=== PATIENT | female | born 1965 | race Caucasian/White ===

== ENCOUNTER 2021-01-11 11:14 | Emergency (ER) | payer OTHER ==
[~2021-01-11 11:14] MED LIST: AUGMENTIN 875-1 EACH PO; NORCO 5-325 TA1 EACH PO; ZITHROMAX250 MG PO
== END 2021-01-11 16:00 | disposition home or self-care (01) ==
LOC: ER1 11:14
DX: S42.215A Unspecified nondisplaced fracture of surgical neck of left humerus, initial encounter for closed fracture (principal); S52.502D Unspecified fracture of the lower end of left radius, subsequent encounter for closed fracture with routine healing; S52.615D Nondisplaced fracture of left ulna styloid process, subsequent encounter for closed fracture with routine healing; E11.9 Type 2 diabetes mellitus without complications; I10 Essential (primary) hypertension; Z88.2 Allergy status to sulfonamides; W00.0XXA Fall on same level due to ice and snow, initial encounter; Y92.009 Unspecified place in unspecified non-institutional (private) residence as the place of occurrence of the external cause
CPT/HCPCS: 73030; 73110; 73200; 99284

== ENCOUNTER 2021-06-27 09:46 | Inpatient (IN) | payer OTHER ==
[~2021-06-27] VITALS: Ht 170.2 cm; Wt 117.5 kg
[2021-06-27 10:33] LABS: HEMOGLOBIN 13.8 gm/dl (12.3-15.3); RED BLOOD COUNT 5.19 M/UL (4.00-5.10); WHITE BLOOD COUNT 6.3 K/UL (4.5-11.0)
[2021-06-27 10:53] LABS: BUN/CREATININE RATIO 20 (0-10)
[2021-06-27] MEDS ORDERED: NEURONTIN300 MG PO (12:22)
[2021-06-27] MEDS ORDERED: HYDROCODON-ACE1 EAC6 PO (12:22)
[2021-06-27] MEDS ORDERED: IPRAT-ALBUT 0.5-3 ML NEB (12:23)
[2021-06-27] MEDS ORDERED: ZYRTEC10 MG PO (12:23)
[2021-06-27] MEDS ORDERED: BENZONATATE100 MG PO (14:47)
[2021-06-28 04:36] LABS: BUN/CREATININE RATIO 26 (0-10)
[2021-06-28 04:40] LABS: HEMOGLOBIN 13.6 gm/dl (12.3-15.3); RED BLOOD COUNT 5.16 M/UL (4.00-5.10); WHITE BLOOD COUNT 5.2 K/UL (4.5-11.0)
[2021-06-28] MEDS ORDERED: DECADRON6 MG PO (13:18)
[2021-06-28] MEDS ORDERED: OMNICEF 300 MG300 MG PO (13:18)
== END 2021-06-28 14:46 | disposition home or self-care (01) | DRG 177 ==
LOC: ER1 09:46 → CDU 12:14 → MED SURG 4 12:14
PROVIDERS: Physician Assistant; ADMIT Internal Medicine
PROC: XW033E5 Introduction of Remdesivir Anti-infective into Peripheral Vein, Percutaneous Approach, New Technology Group 5 (ICD-10-PCS; principal; 2021-06-27)
PROC: 8E0ZXY6 Isolation (ICD-10-PCS; 2021-06-27)
DX: U07.1 COVID-19 (principal); J12.82 Pneumonia due to coronavirus disease 2019; J96.01 Acute respiratory failure with hypoxia; E11.40 Type 2 diabetes mellitus with diabetic neuropathy, unspecified; E78.5 Hyperlipidemia, unspecified; G89.29 Other chronic pain; M54.5 Low back pain; Z90.710 Acquired absence of both cervix and uterus; Z90.49 Acquired absence of other specified parts of digestive tract; Z79.891 Long term (current) use of opiate analgesic; Z79.899 Other long term (current) drug therapy; Z88.2 Allergy status to sulfonamides; Z88.8 Allergy status to other drugs, medicaments and biological substances
CPT/HCPCS: 36415; 36600; 71045; 80053; 81001; 82550; 82553; 82728; 82803; 82962; 83615; 83735; 83874; 84484; 85025; 85379; 86140; 93005; 94664; 96374; 99285; J0696; J1100; J1650; J7030

== ENCOUNTER 2021-07-06 10:45 | Inpatient (IN) | payer OTHER ==
[~2021-07-06] VITALS: Ht 170.2 cm; Wt 117.5 kg
[~2021-07-06 10:45] MED LIST changes: +BENZONATATE100 MG PO; +DECADRON6 MG PO; +HYDROCODON-ACE1 EAC6 PO; +IPRAT-ALBUT 0.5-3 ML NEB; +NEURONTIN300 MG PO; +OMNICEF 300 MG300 MG PO; +ZYRTEC10 MG PO
[2021-07-06 11:44] LABS: HEMOGLOBIN 13.6 gm/dl (12.3-15.3); RED BLOOD COUNT 5.44 M/UL (4.00-5.10); WHITE BLOOD COUNT 12.7 K/UL (4.5-11.0)
[2021-07-06 12:04] LABS: BUN/CREATININE RATIO 20 (0-10)
[2021-07-07 04:17] LABS: ACINETOBACTER BAUMANNII Not Detected (Negative); CANDIDA ALBICANS Not Detected (Negative); CANDIDA KRUSEI Not Detected (Negative); CANDIDA TROPICALIS Not Detected (Negative); ENTEROCOCCUS Not Detected (Negative); ESCHERICHIA COLI Not Detected (Negative); HAEMOPHILUS INFLUENZAE Not Detected (Negative); KLEBSIELLA OXYTOCA Not Detected (Negative); KLEBSIELLA PNEUMONIAE Not Detected (Negative); KPC-CARBAPENEM-RESISTANCE GENE Not Detected (Negative); PROTEUS Not Detected (Negative); PSEUDOMONAS AERUGINOSA Not Detected (Negative); SERRATIA MARCESANS Not Detected (Negative); STAPHYLOCOCCUS AUREUS Not Detected (Negative); STREP AGALACTIAE (GROUP B) Not Detected (Negative); STREP PYOGENES (GROUP A) Not Detected (Negative); STREPTOCOCCUS Not Detected (Negative); vanA/B (VANCOMYCIN RESIST GENE Not Detected (Negative)
[2021-07-07 04:40] LABS: HEMOGLOBIN 13.4 gm/dl (12.3-15.3); RED BLOOD COUNT 5.34 M/UL (4.00-5.10); WHITE BLOOD COUNT 11.9 K/UL (4.5-11.0)
[2021-07-07 05:01] LABS: BUN/CREATININE RATIO 31 (0-10)
[2021-07-07 05:31] LABS: STAPHYLOCOCCUS DETECTED (Negative); mecA (METHICILLIN RESIST GENE DETECTED (Negative)
[2021-07-08 03:01] LABS: HEMOGLOBIN 13.5 gm/dl (12.3-15.3); RED BLOOD COUNT 5.12 M/UL (4.00-5.10)
[2021-07-08 03:16] LABS: WHITE BLOOD COUNT 16.4 K/UL (4.5-11.0)
[2021-07-08 03:24] LABS: BUN/CREATININE RATIO 34 (0-10)
[2021-07-09 05:16] LABS: HEMOGLOBIN 12.5 gm/dl (12.3-15.3); RED BLOOD COUNT 4.76 M/UL (4.00-5.10); WHITE BLOOD COUNT 15.2 K/UL (4.5-11.0)
[2021-07-09 05:38] LABS: BUN/CREATININE RATIO 35 (0-10)
[2021-07-10 03:15] LABS: BUN/CREATININE RATIO 32 (0-10)
[2021-07-10 08:18] LABS: HEMOGLOBIN 11.9 gm/dl (12.3-15.3); RED BLOOD COUNT 4.63 M/UL (4.00-5.10); WHITE BLOOD COUNT 15.8 K/UL (4.5-11.0)
[2021-07-11 05:37] LABS: HEMOGLOBIN 12.2 gm/dl (12.3-15.3); RED BLOOD COUNT 4.62 M/UL (4.00-5.10); WHITE BLOOD COUNT 13.2 K/UL (4.5-11.0)
[2021-07-11 06:05] LABS: BUN/CREATININE RATIO 32 (0-10)
[2021-07-12 03:00] LABS: HEMOGLOBIN 12.2 gm/dl (12.3-15.3); RED BLOOD COUNT 4.61 M/UL (4.00-5.10); WHITE BLOOD COUNT 14.3 K/UL (4.5-11.0)
[2021-07-12 03:24] LABS: BUN/CREATININE RATIO 33 (0-10)
[2021-07-13 04:01] LABS: HEMOGLOBIN 12.3 gm/dl (12.3-15.3); RED BLOOD COUNT 4.73 M/UL (4.00-5.10); WHITE BLOOD COUNT 13.2 K/UL (4.5-11.0)
[2021-07-13 04:21] LABS: BUN/CREATININE RATIO 29 (0-10)
[2021-07-14 07:52] LABS: HEMOGLOBIN 12.4 gm/dl (12.3-15.3); RED BLOOD COUNT 4.73 M/UL (4.00-5.10); WHITE BLOOD COUNT 14.6 K/UL (4.5-11.0)
[2021-07-14 08:19] LABS: BUN/CREATININE RATIO 32 (0-10)
[2021-07-15 03:22] LABS: HEMOGLOBIN 12.1 gm/dl (12.3-15.3); RED BLOOD COUNT 4.63 M/UL (4.00-5.10); WHITE BLOOD COUNT 13.5 K/UL (4.5-11.0)
[2021-07-15 03:55] LABS: BUN/CREATININE RATIO 36 (0-10)
[2021-07-16 03:10] LABS: HEMOGLOBIN 12.1 gm/dl (12.3-15.3); RED BLOOD COUNT 4.61 M/UL (4.00-5.10)
[2021-07-16 03:47] LABS: BUN/CREATININE RATIO 30 (0-10)
[2021-07-17 06:52] LABS: HEMOGLOBIN 11.9 gm/dl (12.3-15.3); RED BLOOD COUNT 4.73 M/UL (4.00-5.10); WHITE BLOOD COUNT 13.4 K/UL (4.5-11.0)
[2021-07-17 07:08] LABS: BUN/CREATININE RATIO 27 (0-10)
[2021-07-17] MEDS ORDERED: NORVASC5 MG PO (09:07)
[2021-07-17] MEDS ORDERED: PROAIR HFA8.5 GM INH (09:07)
[2021-07-17] MEDS ORDERED: METFORMIN ER G500 MG PO (09:09)
== END 2021-07-17 11:31 | disposition home or self-care (01) | DRG 177 ==
LOC: ER1 10:45 → CDU 14:04 → PROG CARE 14:04 → CDU 07-07 10:04 → PROG CARE 07-07 18:30 → M/S 07-16 15:52
PROVIDERS: Emergency Medicine; Internal Medicine; ADMIT Internal Medicine
PROC: XW033E5 Introduction of Remdesivir Anti-infective into Peripheral Vein, Percutaneous Approach, New Technology Group 5 (ICD-10-PCS; principal; 2021-07-06)
PROC: 3E0333Z Introduction of Anti-inflammatory into Peripheral Vein, Percutaneous Approach (ICD-10-PCS; 2021-07-06)
PROC: 8E0ZXY6 Isolation (ICD-10-PCS; 2021-07-06)
PROC: 5A0945A Assistance with Respiratory Ventilation, 24-96 Consecutive Hours, High Flow/Velocity Cannula (ICD-10-PCS; 2021-07-06)
DX: U07.1 COVID-19 (principal); J12.82 Pneumonia due to coronavirus disease 2019; J80 Acute respiratory distress syndrome; E87.2 Acidosis; E11.40 Type 2 diabetes mellitus with diabetic neuropathy, unspecified; E11.649 Type 2 diabetes mellitus with hypoglycemia without coma; E87.6 Hypokalemia; E86.1 Hypovolemia; E78.5 Hyperlipidemia, unspecified; G89.29 Other chronic pain; I44.7 Left bundle-branch block, unspecified; Z79.4 Long term (current) use of insulin; Z90.49 Acquired absence of other specified parts of digestive tract; Z90.710 Acquired absence of both cervix and uterus; Z83.6 Family history of other diseases of the respiratory system; Z88.2 Allergy status to sulfonamides; Z88.8 Allergy status to other drugs, medicaments and biological substances
CPT/HCPCS: 36415; 36600; 71045; 73630; 80048; 80053; 80202; 82550; 82553; 82803; 82962; 83605; 83615; 83690; 83735; 84100; 84484; 85025; 85027; 85379; 86140; 87040; 87077; 87150; 87186; 93005; 94640; 94660; 94760; 97162; 97530; 97530-GP-CQ; 99285; A6212; J0360; J0456; J0696; J1100; J1650; J3370; J7030; J7050; J7070; Q9967; U0002